=== PATIENT | female | born 1935 | race Caucasian/White ===

== ENCOUNTER 2017-01-31 16:44 | Outpatient (CLI) | payer MEDICARE ==
--- NOTE | 2017-01-31 18:03 | Ultrasound Preliminary Report ---
Exam: US Duplex Ext Veins Left IMPRESSION: No evidence for deep venous thrombosis. RADIA The call report notification system was initiated by Dr. Luc Kaplan at 17:56 hrs on 01/31/17. The above findings were discussed with Selin Kelley by Dr. Luc Kaplan at 18:02 hrs on 01/31/17. SITE ID: [id number]
--- NOTE | 2017-01-31 18:34 | Ultrasound Report ---
EXAM: LEFT LOWER EXTREMITY VENOUS ULTRASOUND EXAM DATE: 01/31/2017 04:53 PM. CLINICAL HISTORY: Left calf pain, history of superficial clots. COMPARISON: None. TECHNIQUE: Real-time sonographic vascular imaging was performed by the brick stacker through the lower extremity utilizing both color-flow and Doppler spectral analysis. Multiple patient access representative static ethan ges were saved for review. FINDINGS: Common Femoral Vein (CFV): Normal. CFV-GSV Junction: Normal. Profunda Femoral Vein (PFV): Normal. Femoral Vein (FV) Prox: Normal. Femoral Vein (FV) Mid: Normal. Femoral Vein (FV) Dist: Normal. Popliteal Vein: Normal. Posterior Tibial Veins: Normal. Peroneal Veins: Normal. Contralateral Side CFV: Normal. Other: None. IMPRESSION: No evidence for deep venous thrombosis. RADIA The call report notification system was initiated by Dr. Luc Kaplan at 17:56 hrs on 01/31/17. The above findings were discussed with Selin Kelley by Dr. Luc Kaplan at 18:02 hrs on 01/31/17. Referring Provider Line: [phone] SITE ID: [id number]
== END 2017-01-31 16:45 | disposition home or self-care (01) ==
LOC: DI 16:44
PROVIDERS: ATTEND Nurse Practitioner Family
DX: M79.662 Pain in left lower leg (principal)

== ENCOUNTER 2018-02-23 14:24 | Outpatient (CLI) | payer MEDICARE ==
--- NOTE | 2018-02-23 15:42 | XRAY Report ---
Procedure Date: 02/23/2018 Accession Number: [id number] / [id number] Procedure: XR - Knee 3 View LT CPT Code: FULL RESULT: EXAM: LEFT KNEE RADIOGRAPHY EXAM DATE: 02/23/2018 02:27 PM. CLINICAL HISTORY: Left knee pain x years. COMPARISON: None. TECHNIQUE: 3 views. FINDINGS: Bones: Normal. No fractures or bone lesions. Joints: Moderate tricompartmental osteoarthrosis. No significant effusion. No subluxations. Soft Tissues: Normal. No soft tissue swelling. IMPRESSION: Degenerative changes. RADIA
== END 2018-02-23 14:25 | disposition home or self-care (01) ==
LOC: DI 14:24
PROVIDERS: ATTEND Nurse Practitioner Family
DX: M17.12 Unilateral primary osteoarthritis, left knee (principal)

== ENCOUNTER 2018-09-10 09:54 | Outpatient (CLI) | payer MEDICARE ==
--- NOTE | 2018-09-11 08:26 | Mammography Report ---
Reason: L BREAST CA Procedure Date: 09/10/2018 Accession Number: [id number] / [id number] Procedure: BK - Screening Mammo Right w/Nicholas CPT Code: FULL RESULT: EXAM: Screening Mammo Right w/Nicholas DATE: 09/10/2018 10:18 AM CLINICAL HISTORY: History of late childbearing and breast cancer status post left mastectomy. TECHNIQUE: Right CC and MLO views were obtained. COMPARISON: 01/28/2015 through 01/19/2015. FINDINGS: The right breast demonstrates scattered fibroglandular densities. There are typically benign coarse and typically benign large rodlike calcifications in the right breast. No suspicious masses, clustered microcalcifications, or regions of architectural distortion are identified. IMPRESSION: Benign findings RECOMMENDATION: Routine annual screening unless otherwise clinically indicated. BIRADS CATEGORY 2: Benign findings STANDARD QUALIFYING STATEMENTS: 1. This examination was not reviewed with the aid of Computer-Aided Detection (CAD). 2. A negative or benign imaging report should not preclude biopsy if clinically suspicious findings are present. 3. Dense breasts may obscure an underlying neoplasm. 4. This examination was reviewed with the aid of 3D breast imaging (tomosynthesis).
== END 2018-09-10 09:55 | disposition home or self-care (01) ==
LOC: DI 09:54
PROVIDERS: ATTEND Internal Medicine Hematology & Oncology
DX: Z12.31 Encounter for screening mammogram for malignant neoplasm of breast (principal); Z85.3 Personal history of malignant neoplasm of breast; Z90.12 Acquired absence of left breast and nipple
CPT/HCPCS: 77063

== ENCOUNTER 2019-03-18 11:40 | Outpatient (CLI) | payer MEDICARE ==
--- NOTE | 2019-03-18 18:05 | DEXA Report ---
Reason: OSTEOPOROSIS, POST MENOPAUSAL Procedure Date: 03/18/2019 Accession Number: [id number] / [id number] Procedure: DEX - Dexa Spine and/or Hip CPT Code: FULL RESULT: EXAM: Dexa Spine and/or Hip DATE: 03/18/2019 12:27 PM CLINICAL HISTORY: OSTEOPOROSIS FOLLOW-UP, POST MENOPAUSAL TECHNIQUE: Dual energy x-ray absorptiometry (DXA) was performed on a Zimplistic System. Regions measured are the AP Spine, femoral neck, and if needed forearm. COMPARISON: 07/18/2017 In accordance with the International Society for Clinical Densitometry (ISCD) guidelines, data from previous exams may be reanalyzed using current recommendations and techniques. This is done to allow a more accurate basis for comparison with the current study. FINDINGS: The data for the lumbar spine is as follows: BMD (g/cm/cm) T-SCORE Z-SCORE REGION L1 0.900 -1.9 -0.2 L2 0.913 -2.4 -0.7 L3 1.041 -1.3 0.4 L4 0.954 -2.0 -0.4 TOTAL 0.954 -1.9 -0.2 NOTE: All evaluable vertebrae are used for classification The data for the hip is as follows: BMD (g/cm/cm) T-SCORE Z-SCORE REGION Neck 0.717 -2.3 -0.2 TOTAL 0.765 -1.9 0.1 NOTE: The femoral neck or total proximal femur, whichever is lowest, is used for classification. DXA RESULTS SUMMARY: Spine SCAN DATE AGE BMD CHANGE VS CHANGE VS PREVIOUS PREVIOUS % [birth year][age]18/2019 [age] 0.954 0.022 2.4 07/18/2017 [age] 0.932 * Denotes significant change at the 95% confidence level. Denotes dissimilar scan types or analysis methods. DXA RESULTS SUMMARY: Hip SCAN DATE AGE BMD CHANGE VS CHANGE VS PREVIOUS PREVIOUS % 5/[birth year]2019 [age] 0.765 0.005 0.7 07/18/2017 82.4 0.760 * Denotes significant change at the 95% confidence level. Denotes dissimilar scan types or analysis methods. IMPRESSION: THE WHO CLASSIFICATION BASED ON THE INTERNATIONAL REFERENCE STANDARD IS OSTEOPENIA, REFERENCE LEFT FEMORAL NECK. THE FRACTURE RISK IS INCREASED. RECOMMENDATION: Patients with diagnosis of osteoporosis or osteopenia should have regular bone mineral density assessment. For those eligible for Medicare, routine testing is allowed once every 2 years. Testing frequency can be increased for patients who have rapidly progressing disease or for those who are receiving medical therapy to restore bone mass. COMMENT: World Health Organization (WHO) definitions for osteoporosis and osteopenia: NORMAL BMD: T-score at -1.0 or higher, fracture risk is low OSTEOPENIA BMD: T-score between -1.0 and -2.5, fracture risk is increased. OSTEOPOROSIS BMD: T-score at -2.5 or lower, fracture risk is high. National Osteoporosis Foundation recommends: 1. Obtain adequate dietary calcium (at least 1200 mg per day) and vitamin D (400-800 international units per day). 2. Participate, as appropriate, in regular weightbearing and muscle-strengthening exercise. 3. Avoid tobacco use and reduce alcohol and caffeine intake. 4. For more detailed information see the website at www.NOF.org.
== END 2019-03-18 11:41 | disposition home or self-care (01) ==
LOC: DI 11:40
PROVIDERS: ATTEND Internal Medicine Hematology & Oncology
DX: M85.89 Other specified disorders of bone density and structure, multiple sites (principal); Z78.0 Asymptomatic menopausal state; C50.912 Malignant neoplasm of unspecified site of left female breast
CPT/HCPCS: 77080

== ENCOUNTER 2019-09-11 10:53 | Outpatient (CLI) | payer MEDICARE ==
--- NOTE | 2019-09-11 12:59 | Mammography Report ---
Reason: ROUTINE MAMMO, HX LT BREAST CA Procedure Date: 09/11/2019 Accession Number: [id number] / [id number] Procedure: BK - Screening Mammo Right w/Nicholas CPT Code: Final Report FULL RESULT: EXAM: Screening Mammo Right w/Nicholas DATE: 09/11/2019 11:17 AM CLINICAL HISTORY: Screening encounter. History of late childbearing. Personal history of breast cancer status post left mastectomy. TECHNIQUE: (R) - Right CC and MLO views were obtained. COMPARISON: 09/10/2018 through 01/19/2015. PARENCHYMAL PATTERN: (D) - The breast(s) demonstrate(s) heterogeneously dense fibroglandular parenchyma. FINDINGS: Reason increasing focal asymmetry in the lateral right breast 9:00 position 3 cm from the nipple best seen on cc 3-D image 29 and MLO image 11. This requires additional clarification by spot views and ultrasound. There are no suspicious masses, calcifications, or areas of distortion. IMPRESSION: Incomplete examination. BI-RADS category 0. RECOMMENDATION: (ADDMU) - Additional views using both Mammography and Ultrasound recommended. Right breast. BI-RADS CATEGORY: (0) - Incomplete Examination - need additional evaluation. STANDARD QUALIFYING STATEMENTS: 1. This examination was not reviewed with the aid of Computer-Aided Detection (CAD). 2. A negative or benign imaging report should not preclude biopsy if clinically suspicious findings are present. 3. Dense breasts may obscure an underlying neoplasm. 4. This examination was reviewed with the aid of 3D breast imaging (tomosynthesis).
== END 2019-09-11 10:54 | disposition home or self-care (01) ==
LOC: DI 10:53
PROVIDERS: ATTEND Internal Medicine Hematology & Oncology
DX: Z12.31 Encounter for screening mammogram for malignant neoplasm of breast (principal); Z08 Encounter for follow-up examination after completed treatment for malignant neoplasm; Z85.3 Personal history of malignant neoplasm of breast; Z90.10 Acquired absence of unspecified breast and nipple
CPT/HCPCS: 77063

== ENCOUNTER 2020-01-23 12:25 | Outpatient (CLI) | payer MEDICARE ==
--- NOTE | 2020-01-24 07:26 | Ultrasound Report ---
LIMITED ULTRASOUND OF RIGHT BREAST: 01/23/2020 CLINICAL: Patient returns for additional imaging over a suspected mass in the right breast. Comparison is made to exams dated: 01/23/2020 mammogram, 09/11/2019 mammogram, 09/10/2018 mammogram - [facility], 02/25/2015 breast MRI - [facility], 01/28/2015 ultrasound biopsy, and ultrasound - [facility]. Ultrasound of the right breast retroareolar was performed on the area of interest. There is a 0.5 cm x 0.4 cm x 0.6 cm irregular cyst in the right breast at 9 o'clock anterior depth. This irregular cyst displays internal echoes and posterior acoustic enhancement. This likely correla pretty with mammography findings. IMPRESSION: PROBABLY BENIGN The 0.5 cm x 0.4 cm x 0.6 cm irregular cyst in the right breast is consistent with a complicated cyst and is probably benign. A follow-up ultrasound in 6 months is recommended to demonstrate stability. This exam was interpreted at Station ID: [id number]. Electronically Signed By: Vianey Caldwell M.D. lk/:01/23/2020 13:45:18 copy to: DEO WOLFF Ultrasound BI-RADS: 3 Probably benign BI-RADS CATEGORY: (3) - 3 Ultrasound [id number] 6 month follow-up LATERALITY: (B)
--- NOTE | 2020-01-24 07:26 | Mammography Report ---
UNILATERAL RIGHT DIGITAL DIAGNOSTIC MAMMOGRAM 3D/2D: 01/23/2020 CLINICAL: Patient returns today to evaluate a density in the right breast. Comparison is made to exams dated: 09/11/2019 mammogram, 09/10/2018 mammogram - [facility], 01/28/2015 mammogram, and 01/19/2015 mammogram - [facility]. There are scatter ed fibroglandular elements in right breast. There is a focal asymmetry in the right breast at 9 o'clock anterior depth. This is less prominent o n additional views. No other significant masses or calcifications are seen in the breast. IMPRESSION: INCOMPLETE: NEEDS ADDITIONAL IMAGING EVALUATION The focal asymmetry in the right breast is indeterminate. A targeted ultrasound of the right breast is recommended and will be performed immediately following this exam. This exam was interpreted at Station ID: [id number]. NOTE: For mammograms, a report in lay terms will be sent to the patient. Approximately 15% of breast malignancies will not be visualized mammographically. In the management of a palpable breast mass, a negative mammogram must not discourage biopsy of a clinically suspicious lesion. Electronically Signed By: Vianey Caldwell M.D. lk/:01/23/2020 13:10:50 copy to: DEO GLEASON BI-RADS Category 0: Incomplete 3340F PARENCHYMAL PATTERN: (A) - The breast(s) demonstrate(s) scattered fibroglandular densities. BI-RADS CATEGORY: (0) - 0 Ultrasound [id number] Immediate follow-up LATERALITY: (B)
== END 2020-01-23 12:26 | disposition home or self-care (01) ==
LOC: DI 12:25
PROVIDERS: ATTEND Internal Medicine Hematology & Oncology
DX: R92.8 Other abnormal and inconclusive findings on diagnostic imaging of breast (principal)
CPT/HCPCS: 76642

== ENCOUNTER 2020-07-28 11:54 | Outpatient (CLI) | payer MEDICARE ==
--- NOTE | 2020-07-29 10:08 | Ultrasound Report ---
LIMITED ULTRASOUND OF RIGHT BREAST: 07/28/2020 CLINICAL: 6 month follow-up of cysts. Comparison is made to exams dated: 01/23/2020 ultrasound, 01/23/2020 mammogram, 09/11/2019 mammogram, an d 09/10/2018 mammogram - [facility]. Ultrasound of the right breast 9 o'clock, and retroareolar regions was performed. There is a 0.5 cm x 0.4 cm x 0.4 cm irregular cyst in the right breast at 9 o'clock anterior depth. This irregular cyst displays posterior acoustic enhancement. This abnormality is not significantly c hanged. IMPRESSION: PROBABLY BENIGN The 0.5 cm x 0.4 cm x 0.4 cm irregular cyst in the right breast is consistent with a complicated cyst and is probably benign. A follow-up right breast diagnostic ultrasound in 6 months is recommended to demonstrate stability. Patient will be due for bilateral screening mammograms at the time of the follow up examination. This exam was interpreted at Station ID: [id number]. Electronically Signed By: Aniceto Orozco M.D. ar/:07/28/2020 13:24:48 copy to: DEO WOLFF Ultrasound BI-RADS: 3 Probably benign BI-RADS CATEGORY: (3) - 3 Mammo and US [id number] 6 month follow-up LATERALITY: (B)
== END 2020-07-28 11:55 | disposition home or self-care (01) ==
LOC: DI 11:54
PROVIDERS: ATTEND Internal Medicine Hematology & Oncology
DX: N60.01 Solitary cyst of right breast (principal)

== ENCOUNTER 2021-02-11 10:26 | Outpatient (CLI) | payer MEDICARE ==
--- NOTE | 2021-02-12 13:11 | Mammography Report ---
UNILATERAL RIGHT DIGITAL SCREENING MAMMOGRAM 3D/2D: 02/11/2021 CLINICAL: Routine screening. Personal history of left breast cancer. Left mastectomy. History of inve rted nipple right breast. Comparison is made to exams dated: 01/23/2020 mammogram, 09/11/2019 mammogram, 09/10/2018 mammogram - [facility], 02/25/2015 breast MRI - [facility], 01/28/2015 mammogram, and 01/19/2015 mammogram - [facility]. The tissue of right breast is heterogeneously dense. This may lower the sensitivity of mammography. There are calcifications in the right breast. No significant masses, calcifications, or other findings are seen in the breast. There has been no significant interval change. IMPRESSION: BENIGN There is no mammographic evidence of malignancy. A 1 year screening mammogram is recommended. This exam was interpreted at Station ID: [id number]. NOTE: For mammograms, a report in lay terms will be sent to the patient. Approximately 15% of breast malignancies will not be visualized mammographically. In the management of a palpable breast mass, a negative mammogram must not discourage biopsy of a clinically suspicious lesion. Electronically Signed By: Zeeshan Israel M.D. aty/:02/11/2021 11:08:26 copy to: DEO GLEASON BI-RADS Category 2: Benign Finding(s) 3342F PARENCHYMAL PATTERN: (D) - The breast(s) demonstrate(s) heterogeneously dense fibroglandular kindra diaz. BI-RADS CATEGORY: (2) - 2 RECOMMENDATION: (ANNUAL) - Recommend routine annual screening mammography. [id number] 1 year screening LATERALITY: (B)
== END 2021-02-11 10:27 | disposition home or self-care (01) ==
LOC: DI 10:26
DX: Z12.31 Encounter for screening mammogram for malignant neoplasm of breast (principal); Z08 Encounter for follow-up examination after completed treatment for malignant neoplasm; Z85.3 Personal history of malignant neoplasm of breast

== ENCOUNTER 2021-02-16 10:20 | Outpatient (CLI) | payer MEDICARE ==
--- NOTE | 2021-02-17 14:38 | Ultrasound Report ---
LIMITED ULTRASOUND OF RIGHT BREAST: 02/16/2021 CLINICAL: Patient returns for a 6 month follow up of the right breast. Comparison is made to exams dated: 02/11/2021 mammogram, 07/28/2020 ultrasound, 01/23/2020 ultrasound, mammogram, 09/11/2019 mammogram, and 09/10/2018 mammogram - [facility]. Color flow and real-time ultrasound of the right breast retroareolar were performed. Paulino scale imag es of the real-time examination were reviewed. There is a 0.5 cm x 0.4 cm x 0.3 cm oval cyst in the right breast at 9 o'clock anterior depth. This oval cyst is anechoic with internal echoes and posterior acoustic enhancement. This abnormality is n ot significantly changed in size. The internal echos are less prominent. IMPRESSION: PROBABLY BENIGN The 0.5 cm complicated cyst in the retroareolar right breast is not significantly changed in size but appears less complex and is probably benign. A follow-up ultrasound in 12 months is recommended to demonstrate long-term stability. Patient due for mammogram at the same time. Exam findings were conveyed to the patient. Patient is advised to monitor for significant change. This exam was interpreted at Station ID: [id number]. Electronically Signed By: Stan Parker M.D. slc/:02/16/2021 11:05:32 copy to: DEO WOLFF Ultrasound BI-RADS: 3 Probably benign BI-RADS CATEGORY: (3) - 3 Ultrasound [id number] 12 month follow-up LATERALITY: (B)
== END 2021-02-16 10:21 | disposition home or self-care (01) ==
LOC: DI 10:20
PROVIDERS: ATTEND Internal Medicine Hematology & Oncology
DX: C50.911 Malignant neoplasm of unspecified site of right female breast (principal); N60.01 Solitary cyst of right breast

== ENCOUNTER 2023-10-04 15:20 | Outpatient (CLI) | payer MEDICARE ==
[2023-10-04 15:48] LABS: BASOPHILS % (AUTO) 0.3 %; EOSINOPHILS # (AUTO) 0.1 10^3/uL (0.0-0.7); EOSINOPHILS % (AUTO) 0.5 %; HCT - HEMATOCRIT 44.3 % (37.0-47.0); HGB - HEMOGLOBIN 13.7 g/dL (12.0-16.0); LYMPHOCYTES # (AUTO) 1.6 10^3/uL (1.5-3.5); MEAN CORPUSCULAR HEMOGLOBIN 31.3 pg (27.0-31.0); MEAN CORPUSCULAR HGB CONC 30.9 g/dL (32.0-36.0); MEAN CORPUSCULAR VOLUME 101.1 fL (81.0-99.0); MEAN PLATELET VOLUME 9.6 fL (7.9-10.8); MONOCYTES # (AUTO) 0.7 10^3/uL (0.0-1.0); MONOCYTES % (AUTO) 6.7 %; NEUTROPHILS # (AUTO) 7.3 10^3/uL (1.5-6.6); NEUTROPHILS % (AUTO) 75.9 %; PLT - PLATELET COUNT 212 10^3/uL (130-450); RED BLOOD COUNT 4.38 10^6/uL (4.20-5.40); RED CELL DISTRIBUTION WIDTH 13.3 % (12.0-15.0); WHITE BLOOD COUNT 9.7 x10^3/uL (4.8-10.8)
[2023-10-04 16:04] LABS: ALBUMIN/GLOBULIN RATIO 1.5 (1.0-2.2); BILIRUBIN,TOTAL 0.9 mg/dL (0.2-1.0); CREATININE 0.7 mg/dL (0.6-1.3); POTASSIUM 3.9 mmol/L (3.5-4.5); TOTAL PROTEIN 6.7 g/dL (6.4-8.9)
[2023-10-04 17:06] LABS: THYROID STIMULATING HORMONE 1.63 uIU/mL (0.34-5.60)
[2023-10-05 19:07] LABS: ANTI-DNA (DS) AB QN <1 IU/mL (0-9); RNP ANTIBODIES 0.2 AI (0.0-0.9); SMITH ANTIBODIES <0.2 AI (0.0-0.9)
== END 2023-10-04 15:21 | disposition home or self-care (01) ==
LOC: LAB 15:20
PROVIDERS: ATTEND Internal Medicine
DX: L30.9 Dermatitis, unspecified (principal); L30.2 Cutaneous autosensitization
CPT/HCPCS: 36415; 80053; 84439; 84443; 85025; 86038; 86225; 86235

== ENCOUNTER 2024-03-26 10:24 | Emergency (ER) | payer MEDICARE ==
[2024-03-26 10:42] VITALS: BP 187/86; O2SAT 95
--- NOTE | 2024-03-26 11:33 | ED Physician Documentation ---
PD HPI SKIN - Stated complaint Stated Complaint: FACIAL SWELLING - Chief complaint Chief Complaint: Wound - History obtained from History obtained from: Patient - Additional information Additional information: 89-year-old female presents with a mild burning and swelling sensation of the face which started last night and worsened this morning. She states no new irritant contacts, no new soaps lotions detergents, does not wear any make-up on her face. She does recall eating a lot of spicy peppers last night though this is not uncommon for her. She states she has had a similar issue in the past and saw bench hand who prescribed her methylprednisone, cetirizine and topical cortisone which provided her relief. She does not have any oral lesions or swelling, no difficulty swallowing, no wheezing or difficulty breathing, no chest pain. PD PAST MEDICAL HISTORY - Past Medical History Past Medical History: Yes Cardiovascular: Hypertension - Past Surgical History Past Surgical History: Yes General: Hiatal hernia repair /CARPENTER MAINTENANCE: section HEENT: Tonsil/Adenoidectomy - Present Medications Home Medications: Ambulatory Orders Medication Instructions Recorded Confirmed Calcium Carbonate/Vitamin D3 2 cap PO BID 05/25/15 09/20/21 [Calcium 600 + Vit D 400 Softgl] Anastrozole 1 mg PO DAILY 11/30/15 09/20/21 Losartan Potassium 50 mg PO DAILY 02/03/20 09/20/21 hydroCHLOROthiazide 12.5 mg PO DAILY 02/03/20 09/20/21 [Hydrochlorothiazide] Cetirizine [ZyrTEC] 10 mg PO DAILY #30 tablet 03/26/24 Triamcinolone 0.1% Cream [Kenalog 1 applic TOP BID #15 gm 03/26/24 0.1% Cream] methylPREDNISolone [Medrol Dose 1 each PO .PACKAGEINSTRUCTIONS 6 03/26/24 Pack] Days #1 each - Allergies Allergies/Adverse Reactions: Allergies Allergy/AdvReac Type Severity Reaction Status Date / Time aspirin Allergy Rash Verified 03/26/24 10:33 - Social History Does the pt smoke?: No Smoking Status: Never smoker Does the pt drink ETOH?: No Does the pt have substance abuse?: No - Immunizations Immunizations are current?: No - POLST Patient has POLST: No PD ED PE NORMAL - Vitals Vital signs reviewed: Yes - General General: Alert and oriented X 3, No acute distress, Well developed/nourished - HEENT HEENT: Atraumatic, PERRL, EOMI, Moist mucous membranes, Other (Mild puffiness around both eyelids) - Neck Neck: Supple, no meningeal sign - Cardiac Cardiac: RRR, No murmur - Respiratory Respiratory: No respiratory distress, Clear bilaterally - Derm Derm: Other (Slightly reddened and puffy face throughout, no other areas of rash, no pustules or vesicles, nontender.) Results - Vitals Vitals: Vital Signs - 24 hr 03/26/24 10:29 Temperature 36.7 C Heart Rate 71 Respiratory 20 Rate Blood Pressure 187/86 H O2 Saturation 95 Oxygen O2 Source Room air PD Medical Decision Making - ED course Complexity details: considered differential, d/w patient ED course: 89-year-old female presents with puffiness and redness with mild a burning sensation to her face as described in HPI. She has had a similar reaction in the past and received methylprednisone, cortisone cream and cetirizine from her bench hand. She states that they told her if it happened again that they do recommend a biopsy so she plans to make an appointment with him. She does not have any systemic symptoms, no airway compromise, no lip or oral swelling. She has not had any new irritant contacts [place] she did eat a lot of peppers last night which may have been contributing. Is not clear if this is allergic reaction versus autoimmune issue but in any case it does not appear to be emergent, no signs of angioedema or oral involvement. I will prescribe the methylprednisone as well as topical triamcinolone and cetirizine. She was advised return precautions if new or worsening symptoms. Departure - Departure Disposition: 01 Home, Self Care Clinical Impression: Acute dermatitis Condition: Good Instructions: ED Dermatitis Non Specific Rash Prescriptions: Triamcinolone 0.1% Cream [Kenalog 0.1% Cream] 1 applic TOP BID #15 gm methylPREDNISolone [Medrol Dose Pack] 1 each PO .PACKAGEINSTRUCTIONS 6 Days #1 each Cetirizine [ZyrTEC] 10 mg PO DAILY #30 tablet Comments: I have reordered the medication that you have used in the past including a topical cream that you can use on the face that this should not be used for more than 7 days. I have also ordered the methylprednisone and an allergy pill. If you have worsening symptoms, please return to the ER. Please avoid putting anything else in your face any lotions serums make-up or similar. Follow-up with the bench hand as discussed. Medication sent to [facility] pharmacy Forms: PCP List
== END 2024-03-26 11:51 | disposition home or self-care (01) ==
LOC: ED 10:24
DX: L30.8 Other specified dermatitis (principal); I10 Essential (primary) hypertension
CPT/HCPCS: 99283